=== PATIENT | male | born 1940 | race Caucasian/White ===

== ENCOUNTER 2017-11-28 16:28 | Inpatient (IN) | payer OTHER, MEDICARE ==
[~2017-11-28] VITALS: Ht 172.7 cm; Wt 97.9 kg
[~2017-11-28 16:28] MED LIST: FLOMAX0.4 MG PO; GLUCOPHAGE1000 MG PO; LEVEMIR FL100 UNIT/1 SC; LISINOPRIL-HCT1 EACH PO; PRILOSEC20 MG PO; PROSCAR5 MG PO
[2017-11-28 17:02] LABS: HEMATOCRIT 38.6 % (38.0-50.0); HEMOGLOBIN 12.4 G/DL (12.5-16.6); MCH 27.7 PG (29.0-34.0); MCHC 32.1 G/DL (30.0-36.0); MCV 86.2 FL (86-99); PLATELET COUNT 262 K/uL (156-360); RBC DIS.WIDTH-CV 13.5 % (11.8-14.6); RBC DIS.WIDTH-SD 42.2 % (39-53); RED BLOOD COUNT 4.48 M/uL (4.00-5.50); WHITE BLOOD COUNT 14.5 K/uL (4.1-10.2)
[2017-11-28 17:11] LABS: CHLORIDE 104 mEq/L (99-109); POTASSIUM 4.1 mEq/L (3.7-5.4); SODIUM 137 mEq/L (136-147)
[2017-11-28 17:12] LABS: GLUCOSE 145 mg/dL (70-99)
[2017-11-28 17:17] LABS: CREATININE 2.2 mg/dL (0.6-1.3); GFR ESTIMATE (CALCULATED) 31 mL/min/ (58.99-99999); UREA NITROGEN (BUN) 32 mg/dL (9-23)
[2017-11-28 17:23] LABS: TROP-I INTERPRETATION NEGATIVE; TROPONIN-I < 0.01 ng/mL (0.0-0.30)
[2017-11-28 17:32] LABS: ALBUMIN 3.6 g/dL (3.2-4.8)
[2017-11-28 17:34] LABS: TOTAL PROTEIN 7.4 g/dL (6.4-8.3)
[2017-11-28 17:36] LABS: TOTAL BILIRUBIN 0.3 mg/dL (0.0-1.0)
[2017-11-28 17:37] LABS: ALKALINE PHOSPHATASE 59 IU/L (3-129)
[2017-11-28 17:40] LABS: ALT (GPT) 13 IU/L (3-49); AST (GOT) 20 IU/L (2-34); DIRECT BILIRUBIN 0.1 mg/dL (0.0-0.3)
[2017-11-28 17:41] LABS: LIPASE 33 U/L (1.0-51.0)
[2017-11-28 17:45] LABS: APPEARANCE SL.HAZY ((CLEAR)); BILIRUBIN NEGATIVE; BLOOD NEGATIVE; COLOR YELLOW ((YELLOW)); GLUCOSE (STRIP) NEGATIVE; KETONES NEGATIVE; LEUKOCYTES TRACE; NITRITE NEGATIVE; PROTEIN (STRIP) 30; SPECIFIC GRAVITY 1.016 (1.000-1.030); UROBILINOGEN 0.2 MG/DL (0.2-1.0)
[2017-11-28 17:55] LABS: BACTERIA RARE /HPF; EPITHELIAL CELLS RARE /HPF; HYALINE CASTS TNTC /LPF; MUCUS 2+ /LPF; RED BLOOD CELLS 0-5 /HPF (0-5)
[2017-11-28] MEDS ORDERED: NEURONTIN100 MG PO (20:11)
[2017-11-28] MEDS ORDERED: LISINOPRIL20 MG PO (20:15)
[2017-11-28] MEDS ORDERED: ONGLYZA5 MG PO (20:16)
[2017-11-28] MEDS ORDERED: VITAMIN D31000 UNIT PO (20:16)
[2017-11-28] MEDS ORDERED: NAPROXEN500 MG PO (20:17)
[2017-11-28] MEDS ORDERED: ASPIR 8181 M1 PO (20:18)
[2017-11-28 21:59] LABS: HDL CHOLESTEROL 29 MG/DL (Desirable>=40); LDL CHOLESTEROL 48 mg/dL (Desirable<100); NON-HDL CHOLESTEROL 94 mg/dL (Desirable<160); TOTAL CHOLESTEROL 123 mg/dL (Desirable<200); TRIGLYCERIDES 230 MG/DL (Normal: <150)
[2017-11-28 22:43] LABS: Estimated Average Glucose 180 mg/dL (70-123); HEMOGLOBIN A1c (GLYCOHEMOGLOB) 7.9 % HGB (Below 5.7)
[2017-11-28 23:31] VITALS: BP 134/100
[2017-11-29] LABS: C DIFF TOXIN NEGATIVE (NEGATIVE)
[2017-11-29 00:49] LABS: TROP-I INTERPRETATION NEGATIVE; TROPONIN-I < 0.01 ng/mL (0.0-0.30)
[2017-11-29 04:07] VITALS: BP 105/65
[2017-11-29 05:19] LABS: TROP-I INTERPRETATION NEGATIVE; TROPONIN-I < 0.01 ng/mL (0.0-0.30)
[2017-11-29 07:15] VITALS: BP 175/65
[2017-11-29 11:15] VITALS: BP 132/84
[2017-11-29 14:22] LABS: CHLORIDE 106 MEQ/L (99-109); CREATININE 1.6 MG/DL (0.6-1.3); GFR ESTIMATE (CALCULATED) 45 mL/min/ (58.99-99999); GLUCOSE 214 mg/dL (70-99); POTASSIUM 4.1 MEQ/L (3.7-5.4); SODIUM 138 MEQ/L (136-147); UREA NITROGEN (BUN) 29 mg/dL (9-23)
[2017-11-29] MEDS ORDERED: PROCARDIA10 MG PO (15:21)
[2017-11-29 16:20] VITALS: BP 118/76
[2017-11-29 18:29] LABS: CHLORIDE 108 MEQ/L (99-109); SODIUM 139 MEQ/L (136-147)
[2017-11-29 18:46] LABS: CREATININE 1.7 MG/DL (0.6-1.3); GFR ESTIMATE (CALCULATED) 42 mL/min/ (58.99-99999); GLUCOSE 136 mg/dL (70-99); UREA NITROGEN (BUN) 28 mg/dL (9-23)
[2017-11-29 20:00] VITALS: BP 109/61
[2017-11-30] VITALS (14 sets, daily range): BP systolic 103–149; BP diastolic 54–80
[2017-11-30 10:42] LABS: CHLORIDE 104 MEQ/L (99-109); CREATININE 1.6 MG/DL (0.6-1.3); GFR ESTIMATE (CALCULATED) 45 mL/min/ (58.99-99999); GLUCOSE 152 mg/dL (70-99); SODIUM 135 MEQ/L (136-147); UREA NITROGEN (BUN) 23 mg/dL (9-23)
[2017-11-30 11:28] LABS: HEMATOCRIT 32.5 % (38.0-50.0); HEMOGLOBIN 10.5 G/DL (12.5-16.6); MCH 27.4 PG (29.0-34.0); MCHC 32.3 G/DL (30.0-36.0); MCV 84.9 FL (86-99); RBC DIS.WIDTH-CV 13.5 % (11.8-14.6); RBC DIS.WIDTH-SD 41.5 % (39-53); RED BLOOD COUNT 3.83 M/uL (4.00-5.50); WHITE BLOOD COUNT 7.6 K/uL (4.1-10.2)
[2017-11-30 11:51] LABS: IMM.PLATELET FRACTION 4.1 (1-7); PLAT.SUFFICIENCY VERY DECREASED; PLATELET COUNT 3 K/uL (156-360)
[2017-11-30 14:26] LABS: CHLORIDE 107 MEQ/L (99-109); CREATININE 1.7 MG/DL (0.6-1.3); GFR ESTIMATE (CALCULATED) 42 mL/min/ (58.99-99999); GLUCOSE 217 mg/dL (70-99); POTASSIUM 4.1 MEQ/L (3.7-5.4); SODIUM 137 MEQ/L (136-147); UREA NITROGEN (BUN) 20 mg/dL (9-23)
[2017-12-01 00:28] LABS: HEMATOCRIT 30.5 % (38.0-50.0); HEMOGLOBIN 10.1 G/DL (12.5-16.6); MCH 27.8 PG (29.0-34.0); MCHC 33.1 G/DL (30.0-36.0); RBC DIS.WIDTH-CV 13.2 % (11.8-14.6); RBC DIS.WIDTH-SD 40.9 % (39-53); RED BLOOD COUNT 3.63 M/uL (4.00-5.50); WHITE BLOOD COUNT 6.4 K/uL (4.1-10.2)
[2017-12-01 00:29] LABS: PLATELET COUNT 51 K/uL (156-360)
[2017-12-01 03:21] VITALS: BP 104/61
[2017-12-01 05:15] LABS: HEMATOCRIT 31.1 % (38.0-50.0); MCH 26.9 PG (29.0-34.0); MCHC 32.2 G/DL (30.0-36.0); MCV 83.6 FL (86-99); PLATELET COUNT 59 K/uL (156-360); RBC DIS.WIDTH-CV 13.2 % (11.8-14.6); RED BLOOD COUNT 3.72 M/uL (4.00-5.50); WHITE BLOOD COUNT 6.5 K/uL (4.1-10.2)
[2017-12-01 08:57] VITALS: BP 127/88
[2017-12-01 11:19] LABS: CHLORIDE 106 MEQ/L (99-109); SODIUM 139 MEQ/L (136-147)
[2017-12-01 11:24] LABS: CREATININE 1.5 MG/DL (0.6-1.3); GFR ESTIMATE (CALCULATED) 48 mL/min/ (58.99-99999); GLUCOSE 161 mg/dL (70-99); UREA NITROGEN (BUN) 17 mg/dL (9-23)
[2017-12-01] MEDS ORDERED: LEVOFLOXACIN500 MG PO (13:19)
[2017-12-02 13:07] LABS: Heparin Induced Plt Ab Negative (Negative)
[2017-12-02 16:38] LABS: UFH SRA Result Negative (Negative)
== END 2017-12-01 14:58 | disposition home or self-care (01) | DRG 683 ==
LOC: EME 16:28 → EDOF 20:31 → ENRESERV 20:34 → 5WEST 23:29 → ENPENDDIS 12-01 → 5WEST 12-01 14:58
PROVIDERS: Hospitalist; Internal Medicine; Internal Medicine Hematology & Oncology; Physician Assistant
PROC: 30233R1 Transfusion of Nonautologous Platelets into Peripheral Vein, Percutaneous Approach (ICD-10-PCS; principal; 2017-11-30)
DX: N17.9 Acute kidney failure, unspecified (principal); D69.6 Thrombocytopenia, unspecified; N39.0 Urinary tract infection, site not specified; E87.2 Acidosis; E86.0 Dehydration; I95.1 Orthostatic hypotension; A08.4 Viral intestinal infection, unspecified; E11.9 Type 2 diabetes mellitus without complications; E78.1 Pure hyperglyceridemia; E78.5 Hyperlipidemia, unspecified; I10 Essential (primary) hypertension; K21.9 Gastro-esophageal reflux disease without esophagitis; M06.9 Rheumatoid arthritis, unspecified; N40.0 Benign prostatic hyperplasia without lower urinary tract symptoms; I27.20 Pulmonary hypertension, unspecified; I35.8 Other nonrheumatic aortic valve disorders; F17.220 Nicotine dependence, chewing tobacco, uncomplicated; E66.9 Obesity, unspecified; Z68.32 Body mass index [BMI] 32.0-32.9, adult; Z79.4 Long term (current) use of insulin
CPT/HCPCS: 70450; 71010; 74176; 80048; 80048 91; 80061; 80076; 81003; 82948; 83036; 83690; 84484; 85027; 85049; 86022 90; 86850; 86900; 86901; 87493; 87506; 93005; 99281; 99285; G0378; J0696; J1200; J1650; J1815; J2405; J7030; P9035

== ENCOUNTER 2018-05-22 06:58 | Inpatient (IN) | payer OTHER, MEDICARE ==
[~2018-05-22] VITALS: Ht 172.7 cm; Wt 105.4 kg
[~2018-05-22 06:58] MED LIST changes: +ASPIR 8181 M1 PO; +LEVOFLOXACIN500 MG PO; +LISINOPRIL20 MG PO; +NAPROXEN500 MG PO; +NEURONTIN100 MG PO; +ONGLYZA5 MG PO; +PROCARDIA10 MG PO; +VITAMIN D31000 UNIT PO
[2018-05-22 07:51] LABS: HEMATOCRIT 40.2 % (38.0-50.0); HEMOGLOBIN 13.1 G/DL (12.5-16.6); MCH 27.3 PG (29.0-34.0); MCHC 32.6 G/DL (30.0-36.0); MCV 83.8 FL (86-99); PLATELET COUNT 210 K/uL (156-360); RBC DIS.WIDTH-CV 14.9 % (11.8-14.6); RBC DIS.WIDTH-SD 45.7 % (39-53); WHITE BLOOD COUNT 13.4 K/uL (4.1-10.2)
[2018-05-22 07:57] LABS: APPEARANCE CLEAR ((CLEAR)); BILIRUBIN NEGATIVE; BLOOD MODERATE; COLOR YELLOW ((YELLOW)); GLUCOSE (STRIP) >=500; KETONES NEGATIVE; LEUKOCYTES NEGATIVE; NITRITE NEGATIVE; PROTEIN (STRIP) 30; SPECIFIC GRAVITY 1.016 (1.000-1.030); UROBILINOGEN 0.2 MG/DL (0.2-1.0)
[2018-05-22 08:00] LABS: BACTERIA RARE /HPF; EPITHELIAL CELLS NONE SEEN /HPF; MUCUS TRACE /LPF; RED BLOOD CELLS 30-40 /HPF (0-5)
[2018-05-22 08:02] LABS: ALBUMIN 4.1 g/dL (3.2-4.8); CHLORIDE 124 mEq/L (99-109); POTASSIUM 4.5 mEq/L (3.7-5.4); SODIUM 157 mEq/L (136-147)
[2018-05-22 08:05] LABS: GLUCOSE 272 mg/dL (70-99); TOTAL PROTEIN 7.7 g/dL (6.4-8.3)
[2018-05-22 08:07] LABS: TOTAL BILIRUBIN 0.5 mg/dL (0.0-1.0)
[2018-05-22 08:08] LABS: ALKALINE PHOSPHATASE 59 IU/L (3-129); CREATININE 1.6 mg/dL (0.6-1.3); GFR ESTIMATE (CALCULATED) 45 mL/min/ (58.99-99999)
[2018-05-22 08:09] LABS: UREA NITROGEN (BUN) 22 mg/dL (9-23)
[2018-05-22 08:10] LABS: AST (GOT) 16 IU/L (2-34)
[2018-05-22 08:11] LABS: ALT (GPT) 8 IU/L (3-49)
[2018-05-22 08:12] LABS: LIPASE 21 U/L (1.0-51.0)
[2018-05-22] MEDS ORDERED: EYE ITCH RELIEF5 ML BOTH EYES (11:06)
[2018-05-22] MEDS ORDERED: NORVASC5 MG PO (11:07)
[2018-05-22] MEDS ORDERED: GLUCOTROL5 MG PO (11:07)
[2018-05-22 16:13] VITALS: BP 166/88
[2018-05-22 16:56] LABS: CHLORIDE 105 MEQ/L (99-109); CREATININE 1.4 MG/DL (0.6-1.3); GFR ESTIMATE (CALCULATED) 52 mL/min/ (58.99-99999); GLUCOSE 183 mg/dL (70-99); POTASSIUM 4.3 MEQ/L (3.7-5.4); SODIUM 140 MEQ/L (136-147); UREA NITROGEN (BUN) 20 mg/dL (9-23)
[2018-05-22 19:49] VITALS: BP 135/74
[2018-05-22 20:27] LABS: APPEARANCE CLEAR ((CLEAR)); BILIRUBIN NEGATIVE; BLOOD LARGE; COLOR YELLOW ((YELLOW)); GLUCOSE (STRIP) NEGATIVE; KETONES NEGATIVE; LEUKOCYTES NEGATIVE; NITRITE NEGATIVE; PROTEIN (STRIP) NEGATIVE; SPECIFIC GRAVITY 1.009 (1.000-1.030); UROBILINOGEN 0.2 MG/DL (0.2-1.0)
[2018-05-22 20:38] LABS: BACTERIA RARE /HPF; EPITHELIAL CELLS NONE SEEN /HPF; MUCUS TRACE /LPF; RED BLOOD CELLS TNTC /HPF (0-5); UCUL ADDED? YES; WHITE BLOOD CELLS 0-5 /HPF (0-5)
[2018-05-23 00:03] VITALS: BP 157/86
[2018-05-23 03:53] VITALS: BP 142/74
[2018-05-23 06:57] LABS: BASOPHIL (%) 0.7 % (0-1); BASOPHIL COUNT 0.1 K/uL (0-0.1); EOSINOPHIL (%) 0.4 % (0-5); EOSINOPHIL COUNT 0.1 K/uL (0-0.3); HEMATOCRIT 40.5 % (38.0-50.0); HEMOGLOBIN 12.5 G/DL (12.5-16.6); IMMATURE GRANULOCYTE (%) 0.2 % (0.0-0.7); LYMPHOCYTE (%) 15.3 % (15-42); LYMPHOCYTE COUNT 1.9 K/uL (1.0-2.8); MCH 26.2 PG (29.0-34.0); MCHC 30.9 G/DL (30.0-36.0); MCV 84.9 FL (86-99); MONOCYTE (%) 8.4 % (3-12); NEUTROPHIL COUNT 9.2 K/uL (1.8-6.4); RBC DIS.WIDTH-CV 15.1 % (11.8-14.6); RBC DIS.WIDTH-SD 46.6 % (39-53); RED BLOOD COUNT 4.77 M/uL (4.00-5.50); WHITE BLOOD COUNT 12.2 K/uL (4.1-10.2)
[2018-05-23 07:09] LABS: CHLORIDE 104 MEQ/L (99-109); CREATININE 1.7 MG/DL (0.6-1.3); GFR ESTIMATE (CALCULATED) 42 mL/min/ (58.99-99999); GLUCOSE 188 mg/dL (70-99); POTASSIUM 4.2 MEQ/L (3.7-5.4); SODIUM 139 MEQ/L (136-147); UREA NITROGEN (BUN) 21 mg/dL (9-23)
[2018-05-23 07:47] LABS: IMM.PLATELET FRACTION 9.5 (1-7); PLAT.SUFFICIENCY DECREASED
[2018-05-23 07:54] LABS: PLATELET COUNT 27 K/uL (156-360)
[2018-05-23 08:13] VITALS: BP 132/80
[2018-05-23 11:56] VITALS: BP 138/76
[2018-05-23 18:39] LABS: BASOPHIL (%) 0.8 % (0-1); BASOPHIL COUNT 0.1 K/uL (0-0.1); EOSINOPHIL (%) 1.5 % (0-5); EOSINOPHIL COUNT 0.1 K/uL (0-0.3); HEMATOCRIT 34.3 % (38.0-50.0); HEMATOLOGY COMMENT 1 SN; IMM.PLATELET FRACTION 5.4 (1-7); IMMATURE GRANULOCYTE (%) 0.9 % (0.0-0.7); LYMPHOCYTE (%) 22.6 % (15-42); MCHC 32.1 G/DL (30.0-36.0); MCV 84.3 FL (86-99); MONOCYTE (%) 12.6 % (3-12); MONOCYTE COUNT 1.1 K/uL (0-0.8); NEUTROPHIL (%) 61.6 % (45-76); NEUTROPHIL COUNT 5.4 K/uL (1.8-6.4); NRBC (%) 0.2 /100 WBC (0-0); PLAT.SUFFICIENCY VERY DECREASED; PLATELET COUNT 3 K/uL (156-360); RBC DIS.WIDTH-SD 46.3 % (39-53); RED BLOOD COUNT 4.07 M/uL (4.00-5.50); WHITE BLOOD COUNT 8.7 K/uL (4.1-10.2)
[2018-05-23 20:20] VITALS: BP 130/72
[2018-05-23 23:09] VITALS: BP 139/83
[2018-05-24] VITALS (8 sets, daily range): BP systolic 117–140; BP diastolic 65–94
[2018-05-24 05:45] LABS: BASOPHIL (%) 0.7 % (0-1); BASOPHIL COUNT 0.1 K/uL (0-0.1); EOSINOPHIL (%) 1.7 % (0-5); EOSINOPHIL COUNT 0.2 K/uL (0-0.3); HEMATOCRIT 33.8 % (38.0-50.0); HEMOGLOBIN 10.7 G/DL (12.5-16.6); IMMATURE GRANULOCYTE (%) 0.5 % (0.0-0.7); LYMPHOCYTE (%) 22.5 % (15-42); LYMPHOCYTE COUNT 2.1 K/uL (1.0-2.8); MCH 26.9 PG (29.0-34.0); MCHC 31.7 G/DL (30.0-36.0); MCV 84.9 FL (86-99); MONOCYTE (%) 10.4 % (3-12); NEUTROPHIL (%) 64.2 % (45-76); NEUTROPHIL COUNT 5.9 K/uL (1.8-6.4); RBC DIS.WIDTH-SD 46.2 % (39-53); RED BLOOD COUNT 3.98 M/uL (4.00-5.50); WHITE BLOOD COUNT 9.2 K/uL (4.1-10.2)
[2018-05-24 06:17] LABS: CHLORIDE 106 MEQ/L (99-109); CREATININE 1.4 MG/DL (0.6-1.3); GFR ESTIMATE (CALCULATED) 52 mL/min/ (58.99-99999); GLUCOSE 150 mg/dL (70-99); POTASSIUM 3.8 MEQ/L (3.7-5.4); SODIUM 141 MEQ/L (136-147); UREA NITROGEN (BUN) 21 mg/dL (9-23)
[2018-05-24 07:17] LABS: PLAT.SUFFICIENCY DECREASED
[2018-05-24 07:18] LABS: IMM.PLATELET FRACTION 5.3 (1-7); PLATELET COUNT 26 K/uL (156-360)
[2018-05-25 07:15] LABS: BASOPHIL (%) 0.7 % (0-1); BASOPHIL COUNT 0.1 K/uL (0-0.1); EOSINOPHIL (%) 1.1 % (0-5); EOSINOPHIL COUNT 0.1 K/uL (0-0.3); HEMATOCRIT 34.4 % (38.0-50.0); HEMOGLOBIN 10.9 G/DL (12.5-16.6); IMMATURE GRANULOCYTE (%) 0.4 % (0.0-0.7); LYMPHOCYTE (%) 16.5 % (15-42); LYMPHOCYTE COUNT 1.4 K/uL (1.0-2.8); MCH 26.6 PG (29.0-34.0); MCHC 31.7 G/DL (30.0-36.0); MCV 83.9 FL (86-99); MONOCYTE (%) 10.6 % (3-12); MONOCYTE COUNT 0.9 K/uL (0-0.8); NEUTROPHIL (%) 70.7 % (45-76); RBC DIS.WIDTH-CV 14.6 % (11.8-14.6); RBC DIS.WIDTH-SD 44.7 % (39-53); WHITE BLOOD COUNT 8.5 K/uL (4.1-10.2)
[2018-05-25 07:17] LABS: PLATELET COUNT 60 K/uL (156-360)
[2018-05-25 07:38] LABS: ALBUMIN 3.6 G/DL (3.2-4.8); ALKALINE PHOSPHATASE 49 IU/L (3-129); ALT (GPT) 5 IU/L (3-49); AST (GOT) 13 IU/L (2-34); CHLORIDE 103 MEQ/L (99-109); CREATININE 1.3 MG/DL (0.6-1.3); GFR ESTIMATE (CALCULATED) 57 mL/min/ (58.99-99999); GLUCOSE 174 mg/dL (70-99); POTASSIUM 3.7 MEQ/L (3.7-5.4); SODIUM 138 MEQ/L (136-147); TOTAL BILIRUBIN 0.4 MG/DL (0.0-1.0); TOTAL PROTEIN 6.4 G/DL (6.4-8.3); UREA NITROGEN (BUN) 17 mg/dL (9-23)
[2018-05-25 08:54] VITALS: BP 131/67
[2018-05-25] MEDS ORDERED: TAMSULOSIN HCL0.4 MG PO (16:20)
[2018-05-25] MEDS ORDERED: METOPROLOL SUC100 MG PO (16:20)
[2018-05-25] MEDS ORDERED: TYLENOL REGULA325 MG PO (16:21)
[2018-05-25] MEDS ORDERED: ENDOCET 5-3251 EACH PO (16:23)
== END 2018-05-25 16:24 | disposition home or self-care (01) | DRG 694 ==
LOC: EME 06:58 → 2EAST 12:53 → EDOF 12:53 → ENRESERV 12:56 → 2EAST 15:33
PROVIDERS: Anesthesiology; Family Medicine Sports Medicine; Internal Medicine; Nurse Practitioner Family
PROC: 30253R1 (ICD-10-PCS; principal; 2018-05-23)
DX: N13.2 Hydronephrosis with renal and ureteral calculous obstruction (principal); E87.0 Hyperosmolality and hypernatremia; D75.82 Heparin induced thrombocytopenia (HIT); N17.0 Acute kidney failure with tubular necrosis; N18.3 Chronic kidney disease, stage 3 (moderate); E11.65 Type 2 diabetes mellitus with hyperglycemia; E11.21 Type 2 diabetes mellitus with diabetic nephropathy; E11.22 Type 2 diabetes mellitus with diabetic chronic kidney disease; I12.9 Hypertensive chronic kidney disease with stage 1 through stage 4 chronic kidney disease, or unspecified chronic kidney disease; F17.220 Nicotine dependence, chewing tobacco, uncomplicated; N40.0 Benign prostatic hyperplasia without lower urinary tract symptoms; C61 Malignant neoplasm of prostate; D64.9 Anemia, unspecified; E78.2 Mixed hyperlipidemia; E86.0 Dehydration; I25.10 Atherosclerotic heart disease of native coronary artery without angina pectoris; I27.20 Pulmonary hypertension, unspecified; K21.9 Gastro-esophageal reflux disease without esophagitis; M06.9 Rheumatoid arthritis, unspecified; M19.90 Unspecified osteoarthritis, unspecified site; E66.9 Obesity, unspecified; K57.30 Diverticulosis of large intestine without perforation or abscess without bleeding; K31.89 Other diseases of stomach and duodenum; K22.70 Barrett's esophagus without dysplasia; G62.9 Polyneuropathy, unspecified; G89.29 Other chronic pain; R35.0 Frequency of micturition; T36.1X5A Adverse effect of cephalosporins and other beta-lactam antibiotics, initial encounter; Y92.238 Other place in hospital as the place of occurrence of the external cause; K44.9 Diaphragmatic hernia without obstruction or gangrene; Z79.4 Long term (current) use of insulin; Z68.35 Body mass index [BMI] 35.0-35.9, adult; Z87.442 Personal history of urinary calculi; Z79.82 Long term (current) use of aspirin; Z82.49 Family history of ischemic heart disease and other diseases of the circulatory system
CPT/HCPCS: 74176; 80048; 80048 91; 80053; 81003; 82607; 82948; 83605; 83690; 85025; 85025 91; 85027; 86850; 86900; 86901; 87040; 87086; 93005; 99281; 99285; J0696; J1815; J2405; J3010; J3420; J7030; P9035